=== PATIENT | male | born 1940 | race Caucasian/White ===

== ENCOUNTER 2019-01-16 12:56 | Emergency (ER) | payer MEDICARE, OTHER ==
--- NOTE | 2019-01-16 13:53 | CT ---
EXAM: CT Chest WO Con PROVIDED CLINICAL HISTORY: Pain status post injury COMPARISON: None FINDINGS: Heart the heart, pericardium and great vessels are suboptimally evaluated in the absence of IV contra st, particularly with regard to acute abnormalities. There is circumferential linear attenuation with areas of apparent suture lines involving the region of the left ventricular outflow tract, aorti c valve and proximal thoracic aorta, presumably reflecting postoperative change. There is crescentic low density at the left lateral margin of this structure, the significance and etiology of which are uncertain. Median sternotomy changes and left subclavian cardiac pacing device are noted. Scattered vascular anthony cification is seen. Emphysematous changes and scattered sub-4 mm noncalcified nodules are seen. The lungs are free of sig nificant opacity. No pleural fluid or pneumothorax apparent. The airway appears patent and of normal caliber. The visualized portions of the upper abdomen appear unremarkable. The osseous structures demonstrate no evidence for traumatic abnormality. IMPRESSION: 1. Presumed postoperative appearance of the aortic root, incompletely evaluated on the basis of this study. 2. No CT evidence for an acute process with limitations as above. 3. Chronic findings as above.
[2019-01-16 13:55] LABS: #Basophils 0.1 thou/uL (0.0-0.2); #Eosinphils 0.3 thou/uL (0.0-0.7); #Lymphocytes 1.3 thou/uL (1.20-3.40); #Monocytes 0.9 thou/uL (0.11-0.59); #Neutrophils 6.9 thou/uL (1.40-6.50); %Basophils 1.6 % (0.0-1.0); %Lymphocytes 13.3 % (21.0-51.0); %Monocytes 9.1 % (0.0-10.0); %Neutrophils 73.1 % (42.0-75.0); Hemoglobin 13.3 g/dL (14.0-18.0); Mean Corpuscular HGB CONC 34.4 g/dL (32.0-36.0); Mean Corpuscular Hemoglobin 32.7 pg (27.0-31.0); Mean Corpuscular Volume 95.2 fL (78.0-98.0); Mean Platelet Volume 7.6 fL (7.4-10.4); Platelet Count 153 thou/uL (130-400); RBC Distribution Width 14.3 % (11.5-14.5); Red Blood Cell (RBC) Count 4.08 mill/uL (4.70-6.10); White Blood Cell (WBC) Count 9.4 thou/uL (4.8-10.8)
[2019-01-16 14:18] LABS: ALT (SGPT) 19 U/L (8-55); AST (SGOT) 23 U/L (5-34); Albumin 4.3 g/dL (3.4-4.8); Alkaline Phosphatase 70 U/L (40-150); Anion Gap 12 mmol/L (10-20); BUN (Urea Nitrogen) 22 mg/dL (8.4-25.7); Bilirubin, Total 0.9 mg/dL (0.2-1.2); CK (CPK) 94 U/L (30-200); Calc. Creatinine Clearance 0 mL/min (70-130); Calcium 9.6 mg/dL (7.8-10.44); Carbon Dioxide 24 mmol/L (23-31); Chloride 102 mmol/L (98-107); Estimated GFR-MDRD 81; Globulin 2.8 g/dL (2.4-3.5); Glucose 108 mg/dL (83-110); Potassium 4.1 mmol/L (3.5-5.1); Protein, Total 7.1 g/dL (5.8-8.1); Sodium 134 mmol/L (136-145)
== END 2019-01-16 15:15 | disposition home or self-care (01) ==
LOC: ERS 12:56
DX: S20.212A Contusion of left front wall of thorax, initial encounter (principal); V89.2XXA Person injured in unspecified motor-vehicle accident, traffic, initial encounter
CPT/HCPCS: 36415; 71250; 80053; 82550; 84484; 85025; 93005